=== PATIENT | female | born 1995 | race African-American/Black ===

== ENCOUNTER 2024-06-24 13:50 | Inpatient (IN) | payer OTHER ==
[2024-06-24 14:34] VITALS: BMI 19.1
[2024-06-24] MEDS ORDERED: DICYCLOMINE HCL 10 MG CAPSULE PO PRN (14:50)
[2024-06-24] MEDS ORDERED: BENZOCAINE/MENTHOL (CHLORASEPTIC ) LOZENGE MM PRN (14:50)
[2024-06-24] MEDS ORDERED: MAGNESIUM HYDROX 2400MG/30ML ORAL SUSPENSION 30 ML CUP PO PRN (14:50)
[2024-06-24] MEDS ORDERED: ACETAMINOPHEN 325 MG TABLET (FP) PO PRN (14:50)
[2024-06-24] MEDS ORDERED: IBUPROFEN 400 MG TABLET (FP) PO PRN (14:50)
[2024-06-24] MEDS ORDERED: LOPERAMIDE HCL 2 MG CAPSULE PO PRN (14:50)
[2024-06-24] MEDS ORDERED: guaiFENesin 600 MG TABLET.ER (FP) PO PRN (14:50)
[2024-06-24] MEDS ORDERED: ONDANSETRON *ODT* 4 MG TABLET SL PRN (14:50)
[2024-06-24] MEDS ORDERED: POLYETHYLENE GLYCOL (HEALTHYLAX) 3350 17 GM PACKET PO PRN (14:50)
[2024-06-24] MEDS ORDERED: BENZONATATE 200 MG CAPSULE PO PRN (14:50)
[2024-06-24] MEDS ORDERED: MAG HYDROX/AL HYDROX/SIMETH 30 ML UNIT-DOSE CUP PO PRN (14:50)
[2024-06-24] MEDS ORDERED: BISMUTH SUBSALICYLATE 524 MG/30 ML PO PRN (14:50)
[2024-06-24] MEDS ORDERED: NALOXONE (NARCAN) HCL 4 MG/0.1 ML SPRAY NS PRN (15:22)
[2024-06-24] MEDS ORDERED: chlordiazePOXIDE HCL 25 MG CAPSULE ONE (18:54)
[2024-06-24] MEDS: chlordiazePOXIDE HCL 25 MG CAPSULE PO ONE (18:58)
[2024-06-24] MEDS: chlordiazePOXIDE HCL 25 MG CAPSULE PO SCH (18:58)
[2024-06-24] MEDS: PRENATAL VITAMINS W/ FOLIC ACID TABLET (FP) PO SCH (19:29)
[2024-06-24] MEDS: NICOTINE 14 MG/24 HOURS TOPICAL PATCH TD SCH (19:29)
[2024-06-24] MEDS: methaDONE 80 MG, methaDONE 20 MG PO ONE (19:38)
[2024-06-24] MEDS: methaDONE HCL 10 MG TABLET PO ONE (19:41)
[2024-06-24] MEDS: MELATONIN 5 MG TABLETS PO SCH (22:35)
[2024-06-24] MEDS: hydrOXYzine PAMOATE 25 MG CAPSULE (FP) PO PRN (22:36)
[2024-06-24] MEDS: METHOCARBAMOL 500 MG TABLET PO PRN (22:36)
[2024-06-24] MEDS: THIAMINE 100 MG TABLET PO SCH (22:36)
[2024-06-25] MEDS ORDERED: methaDONE HCL 10 MG TABLET PO ONE (09:08)
[2024-06-25] MEDS: methaDONE 80 MG, methaDONE 20 MG PO ONE (10:03)
[2024-06-25] MEDS: NIFEdipine E.R. 30 MG TABLET PO SCH (10:03)
[2024-06-25] MEDS: NICOTINE POLACRILEX 4 MG GUM BUC PRN (10:34)
[2024-06-25] MEDS: FLU VACCINE (FLULAVAL) PF 45 MCG/0.5 ML SYRINGE 2024-2025 IM ONE (12:21)
[2024-06-25] MEDS: GABAPENTIN 300 MG CAPSULE PO SCH (13:44)
[2024-06-25 15:58] LABS: HEMATOCRIT 39.4 % (32.4-45.2); HEMOGLOBIN 12.8 GM/dL (10.7-15.3); MCH 30.5 pg (25.7-33.7); MCHC 32.5 g/dl (32.0-36.0); MEAN CELL VOLUME 93.8 fl (80-96); MEAN PLT VOLUME 8.8 fl (7.5-11.1); PLATELET COUNT 255 10^3/uL (134-434); RDW 13.8 % (11.6-15.6); WHITE BLOOD COUNT 5.1 K/mm3 (4.0-10.0)
[2024-06-25 18:27] LABS: CHLORIDE 103 mmol/L (98-107); SODIUM 140 mmol/L (136-145)
[2024-06-25 18:32] LABS: ALBUMIN 3.8 g/dl (3.4-5.0); BLOOD UREA NITROGEN 11.5 mg/dL (7-18); GLUCOSE,RANDOM 76 mg/dL (74-106)
[2024-06-25 18:33] LABS: ANION GAP 5 mmol/L (4-13); CALCIUM 9.8 mg/dL (8.5-10.1); CO2 32 mmol/L (21-32)
[2024-06-25 18:35] LABS: CREATININE 1.1 mg/dL (0.55-1.3); SGOT/AST 21 U/L (15-37)
[2024-06-25] MEDS: NICOTINE POLACRILEX 4 MG LOZENGE BC PRN (18:35)
[2024-06-25 18:37] LABS: BILIRUBIN,TOTAL 0.2 mg/dL (0.2-1); TOT PROT 7.4 g/dl (6.4-8.2)
[2024-06-25 18:39] LABS: SGPT/ALT 31 U/L (13-61)
[2024-06-25 18:40] LABS: ALK PHOS 77 U/L (45-117)
[2024-06-25] MEDS: chlordiazePOXIDE HCL 25 MG CAPSULE PO PRN (20:18)
[2024-06-25 20:21] LABS: HIV INTERPRETATION NEGATIVE (NEGATIVE)
[2024-06-25] MEDS ORDERED: traZODone HCL 50 MG TABLET (FP) PO SCH (22:00)
[2024-06-25] MEDS: QUEtiapine FUMARATE 100 MG TABLET (FP) PO SCH (22:34)
[2024-06-26] MEDS: chlordiazePOXIDE HCL 25 MG CAPSULE PO SCH (05:45)
[2024-06-26] MEDS: methaDONE 80 MG, methaDONE 20 MG PO SCH (05:46)
[2024-06-26] MEDS ORDERED: methaDONE HCL 10 MG TABLET PO SCH (06:00)
[2024-06-26] MEDS: IBUPROFEN 600 MG TABLET (FP) PO PRN (13:26)
[2024-06-26] MEDS: chlordiazePOXIDE HCL 10 MG CAPSULE PO SCH (17:44)
[2024-06-26] MEDS ORDERED: METOPROLOL TARTRATE 25 MG TABLET (FP) PO ONE (21:18)
[2024-06-26] MEDS: METOPROLOL TARTRATE 25 MG TABLET (FP) PO ONE (22:54)
[2024-06-26] MEDS: QUEtiapine FUMARATE 50 MG TABLET PO SCH (22:55)
[2024-06-27] MEDS ORDERED: chlordiazePOXIDE HCL 10 MG CAPSULE PO PRN
[2024-06-27] MEDS: chlordiazePOXIDE HCL 10 MG CAPSULE PO SCH (05:50)
[2024-06-27] MEDS: ARTIFICIAL TEARS OPHTHALMIC DROPS OU PRN (15:52)
[2024-06-28] MEDS: chlordiazePOXIDE HCL 10 MG CAPSULE PO SCH (05:58)
[2024-06-28] MEDS: chlordiazePOXIDE HCL 10 MG CAPSULE PO PRN (11:28)
[2024-06-28] MEDS ORDERED: NALOXONE (NYS OPIOID OVERDOSE PROGRAM) 4 MG/0.1 ML SPRAY NS PRN (12:45)
[2024-06-29] MEDS: chlordiazePOXIDE HCL 10 MG CAPSULE PO ONE (05:45)
[2024-06-30 09:36] VITALS: BP 126/88; PULSE 90; RESP 18; TEMP 97.8
== END 2024-06-30 13:30 | disposition other institution (70) | DRG 773 ==
LOC: YASAS 13:50 → Y6N 18:50
PROVIDERS: ADMIT Allergy & Immunology; ATTEND Surgery
PROC: HZ2ZZZZ Detoxification Services for Substance Abuse Treatment (ICD-10-PCS; principal; 2024-06-24)
DX: F10.230 Alcohol dependence with withdrawal, uncomplicated (principal); F11.20 Opioid dependence, uncomplicated; F12.20 Cannabis dependence, uncomplicated; F17.210 Nicotine dependence, cigarettes, uncomplicated; F19.282 Other psychoactive substance dependence with psychoactive substance-induced sleep disorder; F19.280 Other psychoactive substance dependence with psychoactive substance-induced anxiety disorder; F19.24 Other psychoactive substance dependence with psychoactive substance-induced mood disorder; F43.10 Post-traumatic stress disorder, unspecified; F41.0 Panic disorder [episodic paroxysmal anxiety]; I10 Essential (primary) hypertension; M54.50 Low back pain, unspecified; G89.29 Other chronic pain; Z91.410 Personal history of adult physical and sexual abuse; Z63.0 Problems in relationship with spouse or partner
CPT/HCPCS: 36415; 80053; 80305; 80307; 81025; 85027; 86780; 86803; 87389; 90656; 93005; 93010; G0008

== ENCOUNTER 2024-06-30 13:28 | Inpatient (IN) | payer OTHER ==
[~2024-06-30 13:28] MED LIST: BENZOCAINE/MENTHOL (CHLORASEPTIC ) LOZENGE MM PRN; BENZONATATE 200 MG CAPSULE PO PRN; LOPERAMIDE HCL 2 MG CAPSULE PO PRN; NALOXONE (NARCAN) HCL 4 MG/0.1 ML SPRAY NS PRN; NICOTINE POLACRILEX 2 MG GUM BUC PRN; NICOTINE POLACRILEX 2 MG LOZENGE BC PRN; guaiFENesin 600 MG TABLET.ER (FP) PO PRN
[2024-06-30] MEDS: GABAPENTIN 300 MG CAPSULE PO SCH (14:07)
[2024-06-30] MEDS: NICOTINE POLACRILEX 2 MG GUM BUC PRN (15:41)
[2024-06-30] MEDS: IBUPROFEN 600 MG TABLET (FP) PO PRN (15:41)
[2024-06-30] MEDS: MELATONIN 5 MG TABLETS PO SCH (22:07)
[2024-06-30] MEDS: QUEtiapine FUMARATE 50 MG TABLET PO SCH (22:07)
[2024-06-30] MEDS: THIAMINE 100 MG TABLET PO SCH (22:07)
[2024-07-01] MEDS: methaDONE 80 MG, methaDONE 20 MG PO SCH (05:30)
[2024-07-01] MEDS ORDERED: methaDONE HCL 10 MG TABLET PO SCH (06:00)
[2024-07-01] MEDS: NIFEdipine E.R. 30 MG TABLET PO SCH (09:29)
[2024-07-01] MEDS: NICOTINE 14 MG/24 HOURS TOPICAL PATCH TD SCH (09:29)
[2024-07-01] MEDS: PRENATAL VITAMINS W/ FOLIC ACID TABLET (FP) PO SCH (09:29)
[2024-07-01] MEDS: POLYETHYLENE GLYCOL (HEALTHYLAX) 3350 17 GM PACKET PO PRN (11:52)
[2024-07-01] MEDS: hydrOXYzine PAMOATE 25 MG CAPSULE (FP) PO PRN (18:51)
[2024-07-01] MEDS: propRANOLol HCL 10 MG TABLET PO PRN (18:53)
[2024-07-01] MEDS: QUEtiapine FUMARATE 100 MG TABLET (FP) PO SCH (21:18)
[2024-07-02] MEDS: buPROPion HCL 100 MG TABLET PO SCH (06:14)
[2024-07-03] MEDS: ONDANSETRON *ODT* 4 MG TABLET SL PRN (04:05)
[2024-07-03] MEDS: DICYCLOMINE HCL 10 MG CAPSULE PO PRN (04:10)
[2024-07-03] MEDS: MAG HYDROX/AL HYDROX/SIMETH 30 ML UNIT-DOSE CUP PO PRN (06:31)
[2024-07-03] MEDS: TRIMETHOBENZAMIDE HCL 200MG/2ML INJ IM ONE (07:17)
[2024-07-03] MEDS: ACETAMINOPHEN 325 MG TABLET (FP) PO PRN (13:58)
[2024-07-03] MEDS: methaDONE 40 MG, methaDONE 10 MG PO ONE (17:29)
[2024-07-03] MEDS: methaDONE HCL 10 MG TABLET PO ONE (17:31)
[2024-07-04] MEDS ORDERED: methaDONE HCL 10 MG TABLET PO SCH (06:00)
[2024-07-04] MEDS: methaDONE 40 MG, methaDONE 10 MG PO SCH (06:26)
[2024-07-04] MEDS: NICOTINE 14 MG/24 HOURS TOPICAL PATCH TD SCH (10:11)
[2024-07-04] MEDS: buPROPion HCL 75 MG TABLET PO SCH (13:56)
[2024-07-04] MEDS: traZODone HCL 50 MG TABLET (FP) PO SCH (21:03)
[2024-07-05] MEDS: MAGNESIUM HYDROX 2400MG/30ML ORAL SUSPENSION 30 ML CUP PO PRN (11:59)
[2024-07-05] MEDS: IBUPROFEN 400 MG TABLET (FP) PO PRN (14:03)
[2024-07-06] MEDS ORDERED: guaiFENesin 600 MG TABLET.ER (FP) PO PRN (11:46)
[2024-07-06] MEDS ORDERED: BISMUTH SUBSALICYLATE 262 MG/15 ML BTL PO PRN (11:46)
[2024-07-06] MEDS ORDERED: BENZONATATE 200 MG CAPSULE PO PRN (11:46)
[2024-07-06] MEDS ORDERED: methaDONE HCL 40 MG DISPERSABLE TABLET PO SCH (11:46)
[2024-07-06] MEDS ORDERED: METHOCARBAMOL 500 MG TABLET PO PRN (11:46)
[2024-07-07] MEDS: NICOTINE 21 MG/24 HOURS TOPICAL PATCH TD SCH (13:00)
[2024-07-08] MEDS ORDERED: hydrOXYzine PAMOATE 25 MG CAPSULE (FP) PO PRN (13:58)
[2024-07-08] MEDS: methaDONE HCL 10 MG TABLET PO SCH (18:18)
[2024-07-08] MEDS: QUEtiapine FUMARATE 100 MG TABLET (FP) PO SCH (21:08)
[2024-07-09] MEDS: QUEtiapine FUMARATE 100 MG TABLET (FP) PO SCH (21:10)
[2024-07-09] MEDS ORDERED: QUEtiapine FUMARATE 50 MG TABLET PO SCH (22:00)
[2024-07-10] MEDS ORDERED: methaDONE HCL 10 MG TABLET PO SCH (18:00)
[2024-07-14] MEDS: NICOTINE POLACRILEX 2 MG LOZENGE BC PRN (21:18)
[2024-07-15] MEDS: methaDONE HCL 10 MG TABLET PO SCH (06:12)
[2024-07-19 07:08] VITALS: RESP 16
[2024-07-20 07:14] VITALS: TEMP 97.7
[2024-07-20 11:14] VITALS: BP 117/79; PULSE 96
[2024-07-20] MEDS: NALOXONE (NYS OPIOID OVERDOSE PROGRAM) 4 MG/0.1 ML SPRAY NS SCH (12:23)
== END 2024-07-20 12:45 | disposition home or self-care (01) | DRG 772 ==
LOC: YASAS 13:28 → Y3NR 13:30 → Y5N 07-01 12:47
PROVIDERS: ADMIT Psychiatry & Neurology Pain Medicine; ATTEND Family Medicine Addiction Medicine
PROC: HZ42ZZZ Group Counseling for Substance Abuse Treatment, Cognitive-Behavioral (ICD-10-PCS; principal; 2024-06-30)
DX: F11.20 Opioid dependence, uncomplicated (principal); F10.20 Alcohol dependence, uncomplicated; F12.20 Cannabis dependence, uncomplicated; F17.210 Nicotine dependence, cigarettes, uncomplicated; F43.10 Post-traumatic stress disorder, unspecified; F41.9 Anxiety disorder, unspecified; I10 Essential (primary) hypertension; R11.2 Nausea with vomiting, unspecified; Z59.00 Homelessness unspecified
CPT/HCPCS: Q0162